=== PATIENT | female | born 1990 | race Caucasian/White ===

== ENCOUNTER 2019-08-31 13:31 | Emergency (ER) | payer OTHER ==
[2019-09-01 16:09] LABS: SARS-CoV-2 MS2 Positive; SARS-CoV-2 N Gene Negative; SARS-CoV-2 S Gene Negative; SARS-CoV-2 orf1ab Negative
== END 2019-08-31 14:01 | disposition home or self-care (01) ==
LOC: ERS 13:31
DX: Z20.828 Contact with and (suspected) exposure to other viral communicable diseases (principal); F41.9 Anxiety disorder, unspecified
CPT/HCPCS: 87635; 99283; U0003